=== PATIENT | female | born 1970 | race African-American/Black ===

== ENCOUNTER 2020-08-26 14:02 | Emergency (ER) | payer MEDICAID ==
[~2020-08-26] VITALS: Ht 147.3 cm; Wt 77.0 kg
[2020-08-26] MEDS ORDERED: FLUCONAZOLE 100MG TABLET PO ONE (15:45)
[2020-08-26] MEDS ORDERED: FLUCONAZOLE 150MG TABLET PO NR (16:00)
[2020-08-26 16:10] VITALS: BP 120/78
[2020-08-26 16:18] LABS: CLARITY URINE CLOUDY (CLEAR); COLOR URINE YELLOW (YELLOW); KETONES URINE TRACE (NEGATIVE); LEUKOCYTE ESTERASE URINE 1+ (NEGATIVE); NITRITE URINE NEGATIVE (NEGATIVE); OCCULT BLOOD URINE 2+ (NEGATIVE); PH URINE 5.5 (4.5-8.0); PROTEIN URINE NEGATIVE (NEGATIVE); SPECIFIC GRAVITY URINE 1.028 (1.005-1.030)
[2020-08-26 17:19] LABS: UCG SCREEN NEGATIVE
== END 2020-08-26 16:05 | disposition home or self-care (01) ==
LOC: ER 14:21
DX: B37.3 Candidiasis of vulva and vagina (principal)
CPT/HCPCS: 81003; 81025; 87210; 99283

== ENCOUNTER 2020-08-28 19:12 | Emergency (ER) | payer MEDICAID ==
[~2020-08-28] VITALS: Ht 165.1 cm; Wt 70.0 kg
[2020-08-28] MEDS ORDERED: PREDNISONE 20MG TABLET PO ONE (19:30)
[2020-08-28 20:16] VITALS: BP 142/89
== END 2020-08-28 20:20 | disposition home or self-care (01) ==
LOC: ER 19:12
DX: R21 Rash and other nonspecific skin eruption (principal)
CPT/HCPCS: 99283; J7512